=== PATIENT | male | born 1945 | race Caucasian/White ===

== ENCOUNTER 2022-05-18 17:34 | Observation (INO) | payer MEDICARE, OTHER, SELFPAY ==
[2022-05-18] VITALS (11 sets, daily range): BP systolic 135–158; BP diastolic 49–97; PULSE 64–80; RESP 15–20; TEMP 36.4–36.7; O2SAT 97–100; BMI 26.2
--- NOTE | ~2022-05-18 | CT_ITS ---
EXAMINATION: CTA chest PE protocol DATE: 05/19/2022 14:10 INDICATION: Recurrent atypical chest pain. TECHNIQUE: Computed tomography (CT) pulmonary angiogram of the chest was performed with 100 mL Omnipa que-350 intravenous contrast. Additional 3D reconstructions utilizing coronal maximum intensity proje ction (MIP) were performed. Automated exposure control and iterative reconstruction technique were em ployed. The dose-length product was 362.01 mGy-cm. COMPARISON: The abdomen and pelvis dated 03/28/2013 and 03/26/2013 FINDINGS: Excellent contrast opacification of the pulmonary arteries. There is mild streak artifact from dense contrast in the superior vena cava and right atrium. Mild scattered respiratory motion artifact which does not significantly limit evaluation. No pulmonary embolism. Chronic mild elevation the right hem idiaphragm with atelectasis along the basilar right middle and lower lobes. There is additional mild dependent atelectasis in the bilateral lower lobes. No pneumonia, pulmonary edema, pleural effusion o r pneumothorax. Heart size is normal. No pericardial effusion. Thoracic aorta is normal in caliber wi th no dissection. No significant change in several prominent but still normal-sized right hilar and m ediastinal lymph nodes which are likely reactive and unchanged since 03/26/2013. Small sliding-type hia connor hernia. There are bridging osteophytes at multiple levels in the spine, consistent with diffuse i diopathic skeletal hyperostosis (DISH). IMPRESSION: 1. No pulmonary embolism or other acute cardiopulmonary disease. 2. Chronic mild elevation right hemidiaphragm with stable appearance of associated right basilar atel ectasis/scarring. 3. Small sliding-type hiatal hernia. Reviewed, dictated and finalized at location A. IMPRESSION: 1. No pulmonary embolism or other acute cardiopulmonary disease. 2. Chronic mild elevation right hemidiaphragm with stable appearance of associa jeni right basilar atelectasis/scarring. 3. Small sliding-type hiatal hernia.
--- NOTE | ~2022-05-18 | XR_ITS ---
EXAMINATION: XR chest 2V Exam Date/Time: 05/18/2022 17:56 CDT HISTORY: L.SIDE CP, DIZZINESS, SOB SINCE THURSDAY. Comparison: None available. RESULT: Lines, tubes, and devices: None. Lungs and pleura: Streaky bibasilar opacities likely representing scar/atelectasis. Cardiomediastinal silhouette: Arch calcification. Other: No acute osseous or upper abdominal finding. IMPRESSION: No acute cardiopulmonary process. Reviewed, dictated and finalized at location K.
--- NOTE | ~2022-05-18 | NM_ITS ---
EXAMINATION: NM moses stress w perfusion DATE: 05/19/2022 14:14 INDICATION: Chest pain. TECHNIQUE: Rest images were obtained following intravenous administration of 9.7 mCi Tc99m tetrofosmi n (Myoview). The patient was infused intravenously with Lexiscan (regadenoson). Then, 30.5 mCi Tc99m tetrofosmin (Myoview) was administered intravenously, and stress images were obtained. Data was recon structed into short axis and horizontal and vertical long axis SPECT images. Gated SPECT images were also obtained. COMPARISON: Chest CT 05/19/2022 FINDINGS: There is no definite reversible or fixed perfusion abnormality to suggest ischemia or infar ction. There is no segmental wall motion abnormality. Left ventricular ejection fraction measures 6 9%. IMPRESSION: 1. No definite ischemia or infarct. 2. Normal left ventricular ejection fraction measuring 69%. Reviewed, dictated and finalized at location A.
--- NOTE | 2022-05-18 17:34 | ECG_ITS ---
Measurements Intervals [place] Rate: 86 P: 47 NC: 188 QRS: 58 QRSD: 80 T: 28 QT: 335 QTc: 402 Interpretive Statements SINUS RHYTHM WITH FREQUENT VENTRICULAR PREMATURE COMPLEXES NONSPECIFIC T-WAVE ABNORMALITY ABNORMAL RHYTHM ECG NO PREVIOUS ECG AVAILABLE FOR COMPARISON Electronically Signed On 05-19-2022 12:17:27 CDT by Bill Reid M.D.
[2022-05-18 18:01] LABS: Basophils Absolute Auto 0.1 K/mm3 (0.0-0.1); Eosinophils Absolute Auto 1.2 K/mm3 (0-0.3); Eosinophils Percent Auto 12.5 % (0-4.4); Hematocrit 42.9 % (42.0-52.0); Hemoglobin 14.1 g/dL (14.0-18.0); Immature Granulocyte Absolute 0.02 K/mm3 (0.00-0.031); Immature Granulocyte Percent A 0.2 % (0-0.5); Lymphocytes Absolute Auto 2.04 K/mm3 (0.9-3.2); Lymphocytes Percent Auto 21.7 % (18.3-44.2); Mean Corpuscular HGB Conc 32.9 g/dl (32-36); Mean Corpuscular Hemoglobin 31.1 pg (26-34); Mean Corpuscular Volume 94.7 fl (80-100); Mean Platelet Volume 9.3 fl (7.4-10.4); Monocytes Absolute Auto 0.6 K/mm3 (0.1-0.6); Monocytes Percent Auto 5.9 % (2.6-8.5); Neutrophils Absolute Auto 5.5 K/mm3 (1.3-6.7); Neutrophils Percent Auto 58.7 % (45.5-73.1); Platelet Count Result 333 k/mm3 (150-375); Red Blood Count 4.53 M/mm3 (4.6-6.20); Red Cell Distribution Width 13.2 % (11.5-14.5); White Blood Count 9.4 K/mm3 (4.5-10.0)
[2022-05-18 18:13] LABS: Prothrombin Time 12.5 Seconds (11.1-14.7)
[2022-05-18 18:14] LABS: Alanine Aminotransferase 17 U/L (6-50); Albumin Level 4.7 g/dL (3.5-5.1); Alkaline Phosphatase 47 U/L (38-126); Anion Gap 13 mmol/L (8-16); Aspartate Amino Transferase 24 U/L (17-59); Bilirubin,Total 0.6 mg/dL (0.2-1.3); Blood Urea Nitrogen 27 mg/dL (9-20); Calcium 8.7 mg/dL (8.4-10.2); Carbon Dioxide 21 mmol/L (22-30); Chloride 107 mmol/L (98-107); Estimated CRCL calculation 42 ml/min; Estimated Glomerular Filt Rate 54; Glucose 104 mg/dL (65-110); Lipase 127 U/L (23-300); Partial Thromboplastin Time 37.3 SECONDS (22.3-36.8); Potassium 3.6 mmol/L (3.4-5.0); Sodium 141 mmol/L (137-145)
[2022-05-18 18:27] LABS: Troponin I < 0.012 ng/mL (0.000-0.034)
[2022-05-18] MEDS: ASPIRIN 81 MG CHEWABLE TABLET 324 MG PO (20:41)
--- NOTE | 2022-05-18 20:56 | ED.CHESTPAIN ---
HPI - Chest Pain General Chief Complaint: Chest Pain Stated Complaint: CP Time Seen by Provider: 05/18/22 20:19 Source: patient and family Mode of arrival: ambulatory Limitations: no limitations History of Present Illness HPI narrative: 76-year-old with a history of hypertension, hypercholesterolemia here with a left-sided chest pain since this afternoon. Patient states that she went out for walks and after reaching back started having pain in his left side. He denies any shortness of breath. No history of fever or chills or cough. No previous history of CAD. MD complaint: chest pain Onset (ago): hour(s) (5) Timing of current episode: constant Onset: during rest Pain location: left chest Pain radiation: none Severity: moderate Quality: tightness and aching Relieving factors: nothing Exacerbating factors: nothing Treatment prior to arrival: none Risk Factors Coronary artery disease risk factors: hyperlipidemia and hypertension Related Data Allergies Allergy/AdvReac Type Severity Reaction Status Date / Time No Known Drug Allergies Allergy Verified 03/28/13 16:44 Review of Systems Review of Systems: All systems reviewed & are unremarkable except as noted in HPI and below Constitutional: Constitutional: Reports no additional constitutional complaints Eyes: Eyes: Reports no additional eye complaints ENT: Reports system reviewed and no additional complaints, except as documented Cardiovascular: Cardiovascular: Reports as per HPI Respiratory: Respiratory: Reports no additional respiratory complaints Gastrointestinal: Gastrointestinal: Reports no additional gastrointestinal complaints Musculoskeletal: Musculoskeletal: Reports no additional musculoskeletal complaints Exam Narrative: GENERAL: Well-appearing, well-nourished, and in no acute distress. HEAD: Normocephalic, atraumatic. EYES: PERRLA and EOMI.. NECK: Supple. CHEST: Clear to auscultation. No respiratory distress. HEART: Regular rate and rhythm. No murmur heard. Normal peripheral pulses. ABDOMEN: Soft, nontender, nondistended, normal active bowel sounds. EXTREMITIES: Normal range of motion. No edema. SKIN: Warm, dry, no rash. NEURO: No focal deficits. Alert and oriented x3. PSYCH: Normal mood and affect. Course Course Emergency Course: Patient upon arrival to the ER states his pain is very minimal. He wants to know what could be the cause of pain. Explains about his EKG and cardiac enzymes he wants to be admitted to be checked out. Vital Signs Vital signs: Vital Signs Temperature 36.7 C 05/18/22 17:47 Pulse Rate 80 05/18/22 17:47 Respiratory Rate 20 05/18/22 17:47 Blood Pressure 151/69 H 05/18/22 17:47 Pulse Oximetry 99 05/18/22 17:47 Oxygen Delivery Room Air 05/18/22 17:47 Temperature 36.7 C 05/18/22 17:47 Pulse Rate 64 05/18/22 21:14 Respiratory Rate 20 05/18/22 21:14 Blood Pressure 140/49 L 05/18/22 21:14 Pulse Oximetry 100 05/18/22 21:14 Oxygen Delivery Room Air 05/18/22 20:43 MDM - Chest Pain MDM Narrative Medical decision making narrative: 76-year-old with a history of hypertension, hyperlipidemia now having left-sided chest pain nonreproducible EKG did not show any evidence of acute ST-T changes. Differential Diagnosis Differential diagnosis: Likely pneumothorax, unstable angina pectoris and atypical chest pain Medical Records Data Attestation: I reviewed the patient's medical records. Lab Data Attestation: I reviewed the patient's lab results. 05/18/22 17:52 05/18/22 17:52 Labs: Lab Results 05/18/22 05/18/22 05/18/22 Range/Units 17:52 17:52 17:52 WBC 9.4 (4.5-10.0) K/mm3 RBC 4.53 L (4.6-6.20) M/mm3 Hgb 14.1 (14.0-18.0) g/dL Hct 42.9 (42.0-52.0) % MCV 94.7 (80-100) fl MCH 31.1 (26-34) pg MCHC 32.9 (32-36) g/dl RDW 13.2 (11.5-14.5) % Plt Count 333 (150-375) k/mm3 MPV 9.3 (7.4-10.4) fl Immature Gran
[2022-05-18 21:15] LABS: Troponin I < 0.012 ng/mL (0.000-0.034)
--- NOTE | 2022-05-18 22:28 | ADMGEN ---
This patient, Yusuf Toth, was admitted to IMU Room 201-01. Patient/family oriented to hospital policies and general routines including ID bracelet, bed and alarms, visiting hours, pain management, procedures, bathroom and other care routines, personal items, smoking policy, room service/diet, and visiting hours. Information on how to activate the Rapid Response Team has been discussed. Patient/Family are encouraged to report perceived risks to care and to ask questions if they do not understand what they are told or what they should do.
[2022-05-18] MEDS: ACETAMINOPHEN 325 MG TABLET 650 MG PO (23:01)
--- NOTE | 2022-05-18 23:57 | PM.IMHP ---
H&P: HPI History of Present Illness Date/Time: 05/18/22 23:57 Chief Complaint: Chest pain Narrative: 76-year-old male with a past medical history of essential hypertension and hyperlipidemia who presented to the ER from home a with 3 days of intermittent chest pain. The patient reports that he is usually able to walk a couple of miles a day without symptoms. However the last 3 days he has been having some substernal/left-sided chest pain that feels like a toothache and is 5/10 intensity. The pain occurs with activity but seems to persist after rest. Sometimes the pain last anywhere between 10 minutes to 2 hours. He reports that he notices the pain more when he is sitting still. It is associated with some generalized feeling of nausea but no vomiting. He denies any diaphoresis. He has also noticed feeling a little bit short of breath with activity which is unusual for him. Since the chest pain has started occurring he notes that if he is actively having the chest pain and tries to stand up he will get a little bit lightheaded. However the symptoms of lightheadedness were not occurring prior to his episodes of chest pain. He denies any orthopnea, paroxysmal nocturnal dyspnea, palpitations or tachycardia. He has had several stress tests in the past but it is been several years since his last stress test. He he had an echocardiogram due to a heart murmur nose but primary care physician in January. He states he was performed at [facility] and he never heard the results of the echo. He denies any relieving factors for the chest pain. He reports that he was taking a baby aspirin daily for years but was told to stop the baby aspirin after he had an EGD several years ago. He had the EGD due to frequent nausea and vomiting at that time. He has not had those symptoms in quite some time. He denies any known history of GERD or ulcers. He reports that the symptoms have occurred more frequently today. And now the patient's symptoms are occurring at rest and not just with activity. He has not had any chest pain since he arrived to the hospital. Review of Systems Review of Systems: 12 systems were reviewed with pertinent positives and negatives per HPI. Except as documented in the HPI, all other systems were reviewed and are negative. [facility] Past Medical History Medical History (Updated 05/19/22 @ 02:06 by Yani Vinson DO) Allergic rhinitis Essential hypertension Hyperlipidemia Surgical History Surgical History (Updated 05/19/22 @ 02:06 by Yani Vinson DO) History of left knee replacement (~2018) Family History Family History Father Coronary artery disease Myocardial infarction Sibling Coronary artery disease Mother COPD (chronic obstructive pulmonary disease) Social History Social History (Updated 05/19/22 @ 02:09 by Yani Vinson DO) Social History: He lives in [place] with his of 25 years. He does not have any biological children but has 1 stepdaughter. He is a lifelong nonsmoker and does not have any history of significant alcohol use. 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 He then worked further people for several more years until he retired at age 75. Code status: Full code Surrogate decision maker: Smoking status: Never smoker Alcohol intake: never Substance use: never Lack of Transportation: No Lack of Food: Never True Current Housing: I Have Housing Concerned About Future Housing: No Difficulty Paying Gas/Electric Bills: No Difficulty Paying for Meds: No Currently Unemployed: No Education: High School Diploma/GED Difficulty w/ Childcare or Family Care: No Spiritual care concerns: No Meds Home Medications and Allergies Home Medications Medication Instructions Recorded Confirmed Type cetirizine 10
[2022-05-19] VITALS (11 sets, daily range): BP systolic 123–147; BP diastolic 59–63; PULSE 55–90; RESP 18–20; TEMP 36.3–36.6; O2SAT 97–99
--- NOTE | 2022-05-19 | ECHO_ITS ---
Patient Info Name: Yusuf Toth Age: 76 years : 1945 Gender: Male Ht: 67 in Wt: 167 lbs BSA: 1.91 m2 HR: 58 bpm BP: 128 / 62 mmHg Heart Rhythm: Sinus Rhythm Technical Quality: Fair Exam Date: 05/19/2022 9:44 AM Exam Location: [facility] Patient Status: Inpatient Admit Date: 05/18/2022 Staff Ordering Physician: Marcelo Higginbotham MD [employer] Worker: Adriana Hugo RDCS Attending Provider: Yani Vinson DO Referring Physician: Neftaly KASPER; Exam Type: CA echo doppler color flow Study Info Indications - systolic ejection murmur Complete two-dimensional, color flow and Doppler transthoracic echocardiogram is performed with contrast to opacify the left ventricle and to improve the deliniation of the left ventricle endocardial borders. Contrast/Agitated Saline Contrast/Ag. Saline: Definity Amount: 3.00 ml Administered By: Adriana Hugo RDCS Existing IV Access: Yes IV Access Condition: patent with no signs of infiltration Summary 1. Left ventricular chamber dimension is normal. 2. Left ventricular systolic function is normal, estimated at 65-70%. 3. There is mildly increased left ventricular wall thickness. 4. The left ventricular diastolic function is grade I diastolic dysfunction. 5. Left atrial chamber dimension is mildly enlarged. 6. There is moderate aortic valve stenosis with a peak velocity of 233 cm/s, mean gradient of 11 mmHg, and aortic valve area of 1.2 cm2. 7. There is mild aortic valve regurgitation. 8. There is mild tricuspid valve regurgitation. Left Ventricle Left ventricular chamber dimension is normal. Left ventricular systolic function is normal, estimated at 65-70%. There is mildly increased left ventricular wall thickness. The left ventricular diastolic function is grade I diastolic dysfunction. Right Ventricle Right ventricular chamber dimension is normal. Right ventricular systolic function is normal. Left Atria Left atrial chamber dimension is mildly enlarged. Right Atria Right atrial chamber dimension is normal. Atrial Septum Intact interatrial septum visualized by color flow imaging. Aortic Valve The aortic valve is trileaflet. There is moderate aortic valve stenosis with a peak velocity of 233 cm/s, mean gradient of 11 mmHg, and aortic valve area of 1.2 cm2. There is mild aortic valve regurgitation. Pulmonic Valve The pulmonic valve is normal. There is no pulmonic valve stenosis. There is trace pulmonic regurgitation. Mitral Valve The mitral valve has normal leaflets. There is no mitral valve stenosis. There is trace mitral valve regurgitation. Tricuspid Valve The tricuspid valve leaflets are normal. There is no significant tricuspid valve stenosis. There is mild tricuspid valve regurgitation. No pulmonary hypertension, estimated pulmonary arterial systolic pressure is 27 mmHg. Pericardium/Pleural The pericardium appears normal. There is no pericardial effusion. Aorta The prox ascending aorta size is normal. Left Ventricular Outflow Tract Name Value Normal LVOT 2D LVOT Diameter 2.0 cm LVOT Doppler
[2022-05-19 00:10] LABS: Troponin I < 0.012 ng/mL (0.000-0.034)
[2022-05-19 05:26] LABS: Troponin I < 0.012 ng/mL (0.000-0.034)
--- NOTE | 2022-05-19 06:00 | ECG_ITS ---
Measurements Intervals [place] Rate: 59 P: 31 SD: 195 QRS: 37 QRSD: 82 T: 16 QT: 419 QTc: 416 Interpretive Statements SINUS BRADYCARDIA OTHERWISE NORMAL EKG COMPARED TO ECG 05/18/2022 17:39:50 SINUS BRADYCARDIA NOW PRESENT Electronically Signed On 05-19-2022 12:29:06 CDT by Marcelo Higginbotham M.D.
[2022-05-19] MEDS: LOSARTAN POTASSIUM 50 MG TABLET PO (08:47)
[2022-05-19] MEDS: ASPIRIN 81 MG ENTERIC TABLET PO (08:49)
--- NOTE | 2022-05-19 09:16 | PM.CNCAR ---
Assessment and Plan Assessment and plan (1) Essential hypertension: Code(s): I10 - Essential (primary) hypertension Status: Acute Assessment and Plan: Above goal. Continue hydrochlorothiazide and losartan. Will add some low-dose metoprolol 12.5 mg p.o. b.i.d. and up titrate as need be. This will also help treat his PVCs. (2) Hyperlipidemia: Code(s): E78.5 - Hyperlipidemia, unspecified Status: Acute Assessment and Plan: Continue simvastatin (3) Atypical chest pain: Code(s): R07.89 - Other chest pain Status: Acute Assessment and Plan: He does not describe unstable angina. He has resting pain is reproducible by pushing on his chest. Highly unlikely to be cardiac in etiology. Will proceed in order a Lexiscan myocardial perfusion study for reassurance purposes as well as for further evaluation his chest pain and given his numerous risk factors. (4) Dizziness: Code(s): R42 - Dizziness and giddiness Status: Acute Assessment and Plan: Will check orthostatic blood pressure. Stay hydrated. Continue on telemetry for now (5) Family history of coronary artery disease: Code(s): Z82.49 - Family history of ischemic heart disease and other diseases of the circulatory system Status: Acute (6) Systolic ejection murmur: Code(s): R01.1 - Cardiac murmur, unspecified Status: Acute Assessment and Plan: Probably mild aortic stenosis. Will check a 2D echocardiogram Doppler. History of Present Illness History of Present Illness Consult date/time: 05/19/22 09:16 Requesting physician: Yani Vinson, Consult reason: chest pain Reason For Visit: unstable angina Narrative: Date of service 05/19/2022 Reason consultation: Chest pain Requesting provider: Dr. Vinson History: Patient is 76-year-old male has had several stress tests in the past reportedly. He states he was having the stress test at the insistence of his primary care doctor throughout the years but has never really had any chest pain. Regardless he does have a murmur and a history of hypertension hyperlipidemia. Came to the hospital because of some chest pain. His chest pain is generally occurring while at rest. He has no exertional symptoms and has no symptoms with walking or exercising and he states he can split wood and not having any issues at all. Over the past 3 days however he describes finger point left-sided chest pain without radiation to his arm back neck jaw no associated with other symptoms. He does have some dizziness upon standing. His symptoms occur at rest and will last for up to 30 minutes at a time. He has had 4 or 5 episodes over the past several days. He denies any syncope, paroxysmal nocturnal dyspnea, orthopnea, edema, palpitations. He does get a little short of breath at times but this is not particularly new or different a does have the dizziness upon standing which I previously mentioned. Review of Systems Review of Systems: All systems reviewed & are unremarkable except as noted in HPI and below Constitutional: Constitutional: Denies chills Eyes: Eyes: Denies blurry vision ENT: Reports Normal hearing present Cardiovascular: Cardiovascular: Reports chest pain Respiratory: Respiratory: Denies chest congestion Gastrointestinal: Gastrointestinal: Denies abdominal pain Genitourinary: Genitourinary: Denies hematuria Musculoskeletal: Musculoskeletal: Denies back pain Integumentary/Breasts: Skin/Breast: Denies breast pain Neurologic: Denies Abnormal speech present Psychiatric: Psychiatric: Denies confusion Endocrine: Endocrine: Denies excessive sweating Hematologic/Lymphatic: Hematologic/Lymphatic: Denies easy bleeding Allergic/Immunologic: Allergic/Immunologic: Denies GI upset with certain foods PMFSH Past Medical History Medical History Allergic rhinitis [facility]
--- NOTE | 2022-05-19 09:23 | EST_ITS ---
Patient Info Name: Yusuf Toth Age: 76 years : 1945 Gender: Male Ht: 67 in Wt: 167 lbs BSA: 1.91 m2 HR: 64 bpm BP: 101 / 52 mmHg Heart Rhythm: Sinus Rhythm Exam Date: 05/19/2022 1:10 PM Exam Location: [facility] Stress Patient Status: Inpatient Admit Date: 05/18/2022 Staff Ordering Physician: Marcelo Higginbotham MD Attending Provider: Yani Vinson DO Exercise Technologist: Josephine Rice CT Nurse: JEAN-PIERRE ALLEN Exam Type: CA stress moses w NM Study Info Indications R07.9 - Chest pain, unspecified A regadenoson stress test was performed. Summary 1. No abnormal ST/T wave changes diagnostic of ischemia with Lexiscan. 2. Please correlate with nuclear medicine images, reported separately. Protocol: Lexiscan Stress ECG Details Stage: REST Duration (min): 0 min : 55 sec HR (bpm): 66 SBP (mmHg): 136 DBP (mmHg): 66 Stage: REST Duration (min): 8 min : 41 sec HR (bpm): 64 SBP (mmHg): 136 DBP (mmHg): 66 Stage: STAGE 1 Duration (min): 0 min : 59 sec HR (bpm): 88 SBP (mmHg): 145 DBP (mmHg): 68 Stage: RECOVERY Duration (min): 1 min : 0 sec HR (bpm): 89 SBP (mmHg): 145 DBP (mmHg): 68 Stage: RECOVERY Duration (min): 2 min : 0 sec HR (bpm): 90 SBP (mmHg): 145 DBP (mmHg): 68 Stage: RECOVERY Duration (min): 3 min : 0 sec HR (bpm): 85 SBP (mmHg): 147 DBP (mmHg): 61 Stage: RECOVERY Duration (min): 3 min : 12 sec HR (bpm): 82 SBP (mmHg): 147 DBP (mmHg): 61 Rest HR: 64 bpm Peak HR: 90 bpm Rest Sys BP: 136 mmHg Peak Sys BP: 147 mmHg Max Pred HR: 144 bpm % Max Pred HR: 63 % Target HR: 122 bpm Max RPP: 13,230 bpm*mmHg Total Time: 1 min : 0 sec Rest Tse BP: 66 mmHg Peak Tse BP: 61 mmHg Total Dose: 0.4 mg Resting ECG Sinus rhythm. Stress ECG Sinus rhythm. No abnormal ST/T wave changes diagnostic of ischemia with Lexiscan. Report Signatures
[2022-05-19] MEDS: PERFLUTREN LIPID MICROSPHERES 1.5 ML VIAL DILUTED TO 10 ML TOTAL VOLUME IV PUSH (10:29)
--- NOTE | 2022-05-19 10:29 | IVDEFINITY ---
Prior to administration of IV Definity the patient was educated on the risks and benefits of the imaging enhancing agent including potential adverse side effects. The patient verbalized understanding. Allergies were verified. No exclusion criteria were identified and at least one of the following inclusion criteria were met: 1) physician request, 2) patient technically difficult to image (per the [place] [employer] guidelines of two or more segments not discernable within the apical view), or 3) questionable left ventricular function. ?
--- NOTE | 2022-05-19 12:10 | PC.NURSE ---
Pt to nuclear medicine for Lexiscan stress test via wheelchair.
--- NOTE | 2022-05-19 14:11 | PC.NURSE ---
Pt returned from nuclear medicine via wheelchair with no issues noted
--- NOTE | 2022-05-19 14:39 | PM.DS ---
DS: Admitting Diagnosis Discharge Date 05/19/2022 Admitting Diagnosis Chest pain DS: Discharge Diagnosis Discharge Diagnosis (1) Unstable angina pectoris: Code(s): I20.0 - Unstable angina Status: Acute Assessment and Plan: As per cardiology note -pt does not describe unstable angina.? He has resting pain is reproducible by pushing on his chest.? Highly unlikely to be cardiac in etiology.? Lexiscan was negative. Pt had CT PE which was negative Small sliding-type hiatal hernia was found on CT. PPI is advised GERD OR MS are possible cause of Chest pain (2) Essential hypertension: Code(s): I10 - Essential (primary) hypertension Status: Acute Assessment and Plan: Medications are optimized prior to DC (3) Hyperlipidemia: Code(s): E78.5 - Hyperlipidemia, unspecified Status: Acute Assessment and Plan: Cont statin on DC Plan Patient has been admitted as observation status. DS: Summary Hospital Course Hospital Course: 76-year-old male with a past medical history of essential hypertension and hyperlipidemia who presented to the ER from home a with 3 days of intermittent chest pain.? The patient reports that he is usually able to walk a couple of miles a day without symptoms.? However the last 3 days he has been having some substernal/left-sided chest pain that feels like a toothache and is 5/10 intensity.? The pain occurs with activity but seems to persist after rest.? Sometimes the pain last anywhere between 10 minutes to 2 hours.? He reports that he notices the pain more when he is sitting still.? It is associated with some generalized feeling of nausea but no vomiting.? He denies any diaphoresis.? He has also noticed feeling a little bit short of breath with activity which is unusual for him.? Since the chest pain has started occurring he notes that if he is actively having the chest pain and tries to stand up he will get a little bit lightheaded.? However the symptoms of lightheadedness were not occurring prior to his episodes of chest pain.? He denies any orthopnea, paroxysmal nocturnal dyspnea, palpitations or tachycardia.? He has had several stress tests in the past but it is been several years since his last stress test.? He he had an echocardiogram due to a heart murmur nose but primary care physician in January.? He states he was performed at [facility] and he never heard the results of the echo.? He denies any relieving factors for the chest pain.? He reports that he was taking a baby aspirin daily for years but was told to stop the baby aspirin after he had an EGD several years ago.? He had the EGD due to frequent nausea and vomiting at that time. Time Spent with Patient Time attestation: Total time spent providing and/or coordinating discharge services:40 minutes on day of DC Exam Narrative: Weight 76 kg BMI 26.2 Const: Other: No acute distress, well-developed well-nourished, appears younger than stated age HENMT: Other: Mucous membranes are tacky, no oral pharyngeal erythema irregular teeth with a few missing teeth but the remainder of dentition is in fair condition Eyes: Other: Pupils are equal and reactive, no scleral icterus, no conjunctival pallor, cataracts noted bilaterally Neck: Other: No JVD, no lymphadenopathy, no thyromegaly Chest: Other: Nontender to palpation Resp: Other: Clear to auscultation bilaterally, no increased work of breathing Cardio: Other: Clear to auscultation bilaterally, no increased work of breathing GI: Other: Soft, nontender, nondistended, positive bowel sounds Skin: Other: No pallor, non jaundice Neuro: Other: Alert oriented, speech is clear, no facial asymmetry, no localizing neurologic deficits noted on limited exam Extrem: Other: No clubbing, cyanosis or edema Psych: Other: Appropriate mood and affect, pleasant and cooperative, judgment and insight intact DS: Data Data Completed and [place]
== END 2022-05-19 15:17 | disposition home or self-care (01) ==
LOC: ANHED 21:44 → ANHIMU 22:18
PROVIDERS: Emergency Medicine; Admitting Provider Internal Medicine; Emergency Provider Family Medicine; PCP Internal Medicine; Visit Provider Family Medicine
DX: I20.0 Unstable angina (principal); I11.9 Hypertensive heart disease without heart failure; E78.5 Hyperlipidemia, unspecified; R94.31 Abnormal electrocardiogram [ECG] [EKG]; R42 Dizziness and giddiness; Z20.822 Contact with and (suspected) exposure to COVID-19; R91.8 Other nonspecific abnormal finding of lung field; I08.1 Rheumatic disorders of both mitral and tricuspid valves; R00.1 Bradycardia, unspecified; K44.9 Diaphragmatic hernia without obstruction or gangrene; Z82.49 Family history of ischemic heart disease and other diseases of the circulatory system; Z79.899 Other long term (current) drug therapy
CPT/HCPCS: 36415; 71046; 71275; 78452; 80053; 83690; 84484; 85025; 85610; 85730; 93005; 93017; 93306; 96374; 99285; A9270; A9502; C8929; G0378; J2785; Q9957; Q9967

== ENCOUNTER → 2023-06-09 10:36 | Outpatient (REF) | payer MEDICARE, OTHER, SELFPAY | LOC: ANHLAB 10:36 | PROVIDERS: PCP Internal Medicine; Visit Provider Plastic Surgery | DX: L57.8 Other skin changes due to chronic exposure to nonionizing radiation (principal) | CPT/HCPCS: 88305 ==

== ENCOUNTER 2023-10-25 09:01 | Observation (INO) | payer MEDICARE, OTHER, SELFPAY ==
--- NOTE | ~2023-10-25 | CT_ITS ---
Non-contrast CT scan of the Abdomen and Pelvis Clinical indication: Left flank pain Technique: 2.5 mm axial scans were obtained through the abdomen and pelvis without intravenous or or al contrast. Dose reduction technique was used on this scan by utilizing automated exposure control a nd iterative reconstruction technique. The dose-length product (DLP) was 441.54 mGy-cm. Findings: Images through the lung bases reveal no abnormalities. There is a 3-4 mm stone at the proximal left ureter (axial image 100), with mild left hydroureteronep hrosis to this level. There are additional punctate nonobstructing renal stones bilaterally. No right ureteral stone or right hydronephrosis. The liver, spleen, pancreas, gallbladder, and adrenals appear normal. There is no aortic aneurysm. There is no evidence of bowel obstruction. Images through the pelvis were performed. There is no evidence of ascites or lymphadenopathy. Urinary bladder unremarkable. Prostate gland mildly enlarged. Impression: 3-4 mm proximal left ureteral stone, with mild left hydroureteronephrosis. Additional tiny punctate nonobstructing renal stones. Reviewed, dictated and finalized at [facility]. Impression: 3-4 mm proximal left ureteral stone, with mild left hydroureteronephrosis. Additional tiny punctate nonobstructing renal stones.
--- NOTE | ~2023-10-25 | XR_ITS ---
EXAMINATION: XR retrograde pyelo w/stent LT DATE: 10/26/2023 11:56 INDICATION: Left ureteral stone. TECHNIQUE: 41 intraoperative fluoroscopic views of the abdomen and pelvis were obtained. I was not pr esent. Fluoroscopy exposure time was 47 seconds. COMPARISON: CT abdomen and pelvis 10/25/2023 FINDINGS: The left-sided retropyelogram demonstrates mild hydronephrosis. There is a mobile filling d efect in the distal left ureter. The final images demonstrate a left internal ureteral stent in expec jeni position. IMPRESSION: 1. Mild left hydronephrosis. 2. Mobile filling defect in the distal left ureter, which may be a gas bubble or the ureteral stone. 3. Left internal ureteral stent in expected position. Reviewed, dictated and finalized at location A. IMPRESSION: 1. Mild left hydronephrosis. 2. Mobile filling defect in the distal left ureter, which may be a gas bubble o r the ureteral stone. 3. Left internal ureteral stent in expected position.
[2023-10-25 09:13] VITALS: BP 150/75; PULSE 90; RESP 18; TEMP 36.4; O2SAT 100
[2023-10-25 09:28] LABS: Basophils Absolute Auto 0.1 K/mm3 (0.0-0.1); Basophils Percent Auto 0.5 % (0.2-1.2); Eosinophils Absolute Auto 0.5 K/mm3 (0-0.3); Eosinophils Percent Auto 3.4 % (0-4.4); Hematocrit 45.5 % (42.0-52.0); Hemoglobin 14.9 g/dL (14.0-18.0); Immature Granulocyte Absolute 0.05 K/mm3 (0.00-0.031); Immature Granulocyte Percent A 0.4 % (0-0.5); Lymphocytes Absolute Auto 1.91 K/mm3 (0.9-3.2); Lymphocytes Percent Auto 14.2 % (18.3-44.2); Mean Corpuscular HGB Conc 32.7 g/dl (32-36); Mean Corpuscular Hemoglobin 30.7 pg (26-34); Mean Corpuscular Volume 93.8 fl (80-100); Mean Platelet Volume 9.7 fl (7.4-10.4); Monocytes Percent Auto 7.3 % (2.6-8.5); Neutrophils Percent Auto 74.2 % (45.5-73.1); Platelet Count Result 315 k/mm3 (150-375); Red Blood Count 4.85 M/mm3 (4.6-6.20); Red Cell Distribution Width 12.7 % (11.5-14.5); White Blood Count 13.5 K/mm3 (4.5-10.0)
[2023-10-25 09:41] LABS: Alanine Aminotransferase 14 U/L (6-50); Albumin Level 4.7 g/dL (3.5-5.1); Alkaline Phosphatase 39 U/L (38-126); Anion Gap 13 mmol/L (4-12); Aspartate Amino Transferase 24 U/L (17-59); Bilirubin,Total 1.1 mg/dL (0.2-1.3); Blood Urea Nitrogen 25 mg/dL (9-20); Calcium 9.6 mg/dL (8.4-10.2); Carbon Dioxide 24 mmol/L (22-30); Chloride 103 mmol/L (98-107); Estimated CRCL calculation 30 ml/min; Estimated Glomerular Filt Rate 39; Glucose 109 mg/dL (65-110); Potassium 4.4 mmol/L (3.4-5.0); Sodium 140 mmol/L (137-145)
[2023-10-25 10:01] LABS: Add Urine Microscopic? YES; Appearance Urine Clear (Clear); Bacteria Urine None Seen /hpf; Bilirubin Urine Negative (Negative); Blood Urine 3+ (Negative); Color Urine Yellow (Yellow); Glucose Urine UA Negative (Negative); Ketones Urine Trace mg/dL (Negative); Leukocyte Esterase Ur Negative LEU/UL (Negative); Nitrate Urine Negative (Negative); Protein Urine 1+ mg/dL (Negative); Squamous Epithelial Cell Urine None Seen /hpf (Few); Urobilinogen Urine 0.2 mg/dL (<2.0); WBC Urine 0-5 /hpf (0-3); pH Urine 5.5 (5.0-9.0)
--- NOTE | 2023-10-25 10:28 | ED.BACK ---
HPI - Back Pain/Injury General Chief Complaint: Back Pain/Injury Stated Complaint: left flank pain x 3 days Time Seen by Provider: 10/25/23 10:21 Source: patient Mode of arrival: ambulatory Limitations: no limitations History of Present Illness HPI Narrative: Patient presents with complaint of left flank and left-sided abdominal pain of 3 days duration. It is 8/10 severity. He denies any associated nausea or vomiting. He has a previous history of kidney stones for which he saw a urologist at [facility] but cannot recall their name does not follow regularly with them. He denies any urinary urgency, frequency, hematuria, or dysuria. He does note that he previously required a surgical intervention with urology in which they went through his urethra. He denies any korin fever although he has been having hot flashes. Related Data Home Medications Medication Instructions Recorded Confirmed cetirizine 10 mg chewable tablet 10 mg PO DAILY 05/18/22 05/18/22 hydrochlorothiazide 12.5 mg capsule 12.5 mg PO DAILY 05/18/22 05/18/22 losartan 50 mg tablet 50 mg PO DAILY 05/18/22 06/09/23 simvastatin 40 mg tablet 40 mg PO EVERY OTHER DAY 05/18/22 06/09/23 Allergies Allergy/AdvReac Type Severity Reaction Status Date / Time No Known Drug Allergies Allergy Unknown Verified 10/25/23 09:15 [facility] Past Medical History Medical History Allergic rhinitis Essential hypertension History of kidney stones Hyperlipidemia Surgical History Surgical History History of left knee replacement (~2018) Family History Family History Father Coronary artery disease Myocardial infarction Sibling Coronary artery disease Mother COPD (chronic obstructive pulmonary disease) Social History Social History Social History: He lives in [place] with his of 25 years. He does not have any biological children but has 1 stepdaughter. He is a lifelong nonsmoker and does not have any history of significant alcohol use. 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 He then worked [employer] for several more years until he retired at age 75. Code status: Full code Surrogate decision maker: Smoking status: Never smoker Alcohol intake: never Substance use: never Do You Feel Safe in your Home?: Yes Lack of Transportation: No Lack of Food: Never True Current Housing: I Have Housing Concerned About Future Housing: No Difficulty Paying Gas/Electric Bills: No Difficulty Paying for Meds: No Currently Unemployed: No Education: High School Diploma/GED Difficulty w/ Childcare or Family Care: No Spiritual care concerns: No Exam Narrative: GENERAL: Well-appearing, well-nourished, in moderate acute distress. Patient is standing beside the bed at the time, attempting to get comfortable HEAD: Normocephalic, atraumatic. EYES: Non injected, non icteric ENT: Nares clear, no rhinorrhea or epistaxis. NECK: Supple. CHEST: Speaking in full sentences. No respiratory distress. HEART: Regular rate and rhythm. . ABDOMEN: Soft, nondistended. No tenderness to palpation. Abdomen is without rigidity or guarding. Not peritoneal : No CVA tenderness bilaterally EXTREMITIES: Normal range of motion. No lower extremity edema. SKIN: Warm, dry, no rash. NEURO: No focal deficits. Alert and oriented x3. PSYCH: Normal mood and affect. Course Vital Signs Vital signs: Vital Signs Temperature 97.6 F 10/25/23 09:13 Pulse Rate 90 10/25/23 09:13 Respiratory Rate 18 10/25/23 09:13 Blood Pressure 150/75 H 10/25/23 09:13 Pulse Oximetry 100 10/25/23 09:13 Oxygen Delivery Room Air 10/25/23 09:13 [place]
[2023-10-25] MEDS: MORPHINE SULFATE (*CRX) 4 MG/ML INJ IV PUSH ×2 (10:35→12:16)
[2023-10-25] MEDS: SODIUM CHLORIDE 0.9% IV 1,000 ML 999 ML IV CONT ×2 (10:35→12:17)
[2023-10-25] MEDS: TAMSULOSIN HCL 0.4 MG CAPSULE PO (10:47)
[2023-10-25 11:51] LABS: Anion Gap 10 mmol/L (4-12); Blood Urea Nitrogen 24 mg/dL (9-20); Carbon Dioxide 25 mmol/L (22-30); Chloride 105 mmol/L (98-107); Estimated CRCL calculation 29 ml/min; Estimated Glomerular Filt Rate 37; Glucose 97 mg/dL (65-110); Potassium 4.4 mmol/L (3.4-5.0); Sodium 140 mmol/L (137-145)
[2023-10-25 12:04] VITALS: BP 152/80; PULSE 81; O2SAT 99
[2023-10-25] MEDS: KETOROLAC 15 MG/ML VIAL (*BKC) IV PUSH ×2 (12:41→22:25)
[2023-10-25 14:35] VITALS: BP 143/67; PULSE 83; RESP 16; TEMP 36.4; O2SAT 100
--- NOTE | 2023-10-25 14:43 | ADMGEN ---
This patient, Yusuf Toth, was admitted to [facility] Surg Room 330-02. Patient/family oriented to hospital policies and general routines including ID bracelet, bed and alarms, visiting hours, pain management, procedures, bathroom and other care routines, personal items, smoking policy, room service/diet, and visiting hours. Information on how to activate the Rapid Response Team has been discussed. Patient/Family are encouraged to report perceived risks to care and to ask questions if they do not understand what they are told or what they should do.
[2023-10-25 14:52] LABS: Influenza A QL RT-PCR Negative (Negative); Influenza B QL RT-PCR Negative (Negative); RSV RNA, RT-PCR Negative (Negative); SARS-CoV-2 RNA PCR Negative (Negative)
[2023-10-25] MEDS: LACTATED RINGERS 1,000 ML 125 ML IV CONT ×2 (15:00→23:14)
[2023-10-25 21:48] VITALS: BP 151/63; PULSE 78; RESP 18; TEMP 36.7; O2SAT 100
[2023-10-26] VITALS (11 sets, daily range): BP systolic 92–153; BP diastolic 52–83; PULSE 60–80; RESP 12–20; TEMP 36.2–36.9; O2SAT 95–100
[2023-10-26] MEDS: ONDANSETRON INJ 4 MG/2 ML VIAL IV PUSH ×2 (01:59→06:54)
[2023-10-26] MEDS: KETOROLAC 15 MG/ML VIAL (*BKC) IV PUSH (05:07)
--- NOTE | 2023-10-26 06:14 | PC.NURSE ---
10/25/23@ 0215, patient requested Lactated Ringer IV fluids to be turned off. Stated, I want to sleep tonight without it.
--- NOTE | 2023-10-26 08:13 | WPDURCON ---
Assessment and Plan Assessment and plan (1) Left flank pain: Code(s): R10.9 - Unspecified abdominal pain Status: Acute (2) Calculus of left ureter: Code(s): N20.1 - Calculus of ureter Status: Acute (3) Hydronephrosis: Code(s): N13.30 - Unspecified hydronephrosis Status: Acute Plan He would like intervention on the stone. Plan today for stone extraction. We will plan for cystoscopy with ureteroscopy and stone extraction. Possible stent. The only way I would not remove the stone is if the stone was not readily accessible on ureteroscopy. He understands risks of bleeding, infection, damage to urinary tract, inability to remove the stone. He agrees to proceed Urology Consult Note HPI Date Seen: 10/26/23 Requesting Physician: Ervin Bowden MD Primary Care Provider: Eric Earl, Consult Narrative Narrative: Yusuf Toth is a 78 year old male with history of nephrolithiasis. He has had what sounds like ureteroscopy in the past. Had acute onset left flank pain radiating to his left lower quadrant began on Thursday. It was similar to his previous stone episodes. He presented to the ER yesterday afternoon. A CT scan was done which showed a 3-4 mm proximal left ureteral stone with hydronephrosis. He denied any visible blood in the urine. He denied any vomiting. He denied any symptoms of urinary tract infection. He was admitted for further workup. Urinalysis negative for infection. He would like intervention on the stone as he has had significant pain overnight. We will plan on ureteroscopy today to try to remove his stone versus stent placement if the stone is not readily accessible Review of Systems Review of Systems: All systems reviewed & are unremarkable except as noted in HPI and below PMFSH Past Medical History Medical History Allergic rhinitis Essential hypertension History of kidney stones Hyperlipidemia Surgical History Surgical History History of left knee replacement (~2018) Family History Family History Father Coronary artery disease Myocardial infarction Sibling Coronary artery disease Mother COPD (chronic obstructive pulmonary disease) Social History Social History Social History: He lives in [place] with his of 25 years. He does not have any biological children but has 1 stepdaughter. He is a lifelong nonsmoker and does not have any history of significant alcohol use. 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 He then worked [employer] for several more years until he retired at age 75. Code status: Full code Surrogate decision maker: Smoking status: Never smoker Alcohol intake: current Drinks per week: 1 Substance use: never Substance use type: does not use Do You Feel Safe in your Home?: Yes Lack of Transportation: No Lack of Food: Never True Current Housing: I Have Housing Concerned About Future Housing: No Difficulty Paying Gas/Electric Bills: No Difficulty Paying for Meds: No Currently Unemployed: No Education: High School Diploma/GED Difficulty w/ Childcare or Family Care: No Spiritual care concerns: No Meds Home Medications and Allergies Home Medications Medication Instructions Recorded Confirmed Type cetirizine 10 mg chewable tablet 10 mg PO DAILY 05/18/22 10/25/23 History losartan 50 mg tablet 50 mg PO DAILY 05/18/22 10/25/23 History simvastatin 40 mg tablet 40 mg PO EVERY OTHER DAY 05/18/22 10/25/23 History aspirin 81 mg tablet,delayed 81 mg PO QAM #30 tabs 05/19/22 10/25/23 Rx release Allergies Allergy/AdvReac Type Severity Reaction Status Date /
[2023-10-26] MEDS: MORPHINE SULFATE (*CRX) 2 MG/ML INJ 1 MG IV PUSH (08:15)
[2023-10-26] MEDS: LACTATED RINGERS 1,000 ML 30 ML IV CONT (09:45)
--- NOTE | 2023-10-26 09:57 | WPDHPUPDATE1 ---
History and Physical Update Update Date/Time: 10/26/23 09:57 History and Physical has been reviewed, including an updated exam of the patient. There are NO changes in the patient's condition. Risks, benefits, and alternatives have been discussed and questions answered. Patient agrees to proceed with procedure.
--- NOTE | 2023-10-26 11:01 | WPDANESEPPF ---
Anes - Initial Pre Proc Eval Procedure: Operation Date: 10/26/23 16:00 Proposed Procedures p Cystoscopy, Left Ureteroscopy, Left Stone Extraction, Left Stent Placement - Enrique Woods MD Date/Time: 10/26/23 11:01 Surgeon: Ervin Bowden MD Pre Op Diagnosis: kidney stone,laurie Patient Data Age: 78 Gender: M Height: 1.7 m Weight: 73.7 kg Last Vital Signs Temp 36.7 C 10/26/23 09:55 Pulse 67 10/26/23 09:55 Resp 18 10/26/23 09:55 BP 131/52 L 10/26/23 09:55 Pulse Ox 100 10/26/23 09:55 O2 Del Method Room Air 10/26/23 09:55 FiO2 21 10/26/23 07:52 Allergies Allergy/AdvReac Type Severity Reaction Status Date / Time No Known Drug Allergies Allergy Unknown Verified 10/26/23 10:59 Home Medications Medication Instructions Recorded Confirmed Type cetirizine 10 mg chewable tablet 10 mg PO DAILY 05/18/22 10/25/23 History losartan 50 mg tablet 50 mg PO DAILY 05/18/22 10/25/23 History simvastatin 40 mg tablet 40 mg PO EVERY OTHER DAY 05/18/22 10/25/23 History aspirin 81 mg tablet,delayed 81 mg PO QAM #30 tabs 05/19/22 10/25/23 Rx release Laboratory Tests 10/25/23 10/25/23 11:31 12:11 Sodium 140 mmol/L (137-145) Potassium 4.4 mmol/L (3.4-5.0) Chloride 105 mmol/L (98-107) Carbon Dioxide 25 mmol/L (22-30) Anion Gap 10 mmol/L (4-12) BUN 24 H mg/dL (9-20) Creatinine 1.80 H mg/dL (0.7-1.3) Estim Creat Clear Calc 29 ml/min Estimated GFR 37 L (59 - ) Glucose 97 mg/dL (65-110) Calcium 9.0 mg/dL (8.4-10.2) Influenza A (RT-PCR) Negative (Negative) Influenza B (RT-PCR) Negative (Negative) RSV (RT-PCR) Negative (Negative) SARS-CoV-2 RNA (RT-PCR) Negative (Negative) Patient hx anesthesia problems: none Family hx anesthesia problems: none Results Review: All pre-operative results and documents have been reviewed as part of the pre-operative evaluation. [facility] Past Medical History Medical History Allergic rhinitis Essential hypertension History of kidney stones Hyperlipidemia Surgical History Surgical History History of left knee replacement (~2018) Family History Family History Father Coronary artery disease Myocardial infarction Sibling Coronary artery disease Mother COPD (chronic obstructive pulmonary disease) Social History Social History Social History: He lives in [place] with his of 25 years. He does not have any biological children but has 1 stepdaughter. He is a lifelong nonsmoker and does not have any history of significant alcohol use. 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 Code status: Full code Surrogate decision maker: Smoking status: Never smoker Alcohol intake: current Drinks per week: 1 Substance use: never Substance use type: does not use Do You Feel Safe in your Home?: Yes Lack of Transportation: No Lack of Food: Never True Current Housing: I Have Housing Concerned About Future Housing: No Difficulty Paying Gas/Electric Bills: No Difficulty Paying for Meds: No Currently Unemployed: No Education: High School Diploma/GED Difficulty w/ Childcare or Family Care: No Spiritual care concerns: No Anes - Eval Final PreProcedure Day of Procedure 10/26/23 11:01 Patient weight: overweight Heart: regular rate and rhythm Lungs: clear to auscultation Airway: Mallampati scale class II Neurological: alert and oriented Last oral intake: >/= 8 hours ASA classification: II Emergent:
[2023-10-26] MEDS: ceFAZolin 2 GM/D5W 50 ML 2 GM/50 ML BAG IVPB (11:13)
[2023-10-26] MEDS: LIDOCAINE HCL 2% GEL UROJET 10 ML PKG MUCOUS MEM (11:34)
--- NOTE | 2023-10-26 11:49 | P.OP_ITS ---
Procedure Note - Detailed Date of Procedure 10/26/23 Pre-op Diagnosis Ureteral stone Post-op Diagnosis Same Procedure Performed Cystoscopy, left retrograde pyelogram, left ureteroscopy, left stent placement Surgeon Enrique Woods MD Anesthesia General Indications This is a gentleman with a 4 mm left proximal ureteral stone. He is admitted the hospital for pain control and evaluation. He wanted intervention for his stone. He presented for ureteroscopy. He understood the risks of bleeding, infection, inability to remove the stone, damage to the urinary tract. He agreed to proceed Findings Stone migrated distally. Distal ureter very narrow. Unable to pass rigid or flexible ureteral scope. Stent placed Description of Procedure He has correctly identified. Informed consent obtained. From the operating room. He was given general anesthesia. He was placed in dorsal lithotomy position. He was prepped and draped sterile fashion. Time-out performed. I performed cystoscopy. He had mild trabeculations. We hypertrophied lateral prostatic lobes. There was no foreign bodies or tumors in his bladder. I did a gentle retrograde pyelogram on the left. I can see a very narrow left distal ureter. Proximal to this narrowed left distal ureter there was hydronephrosis. A filling defect was seen consistent with ureteral stone. I placed a Sensor wire into the left renal pelvis. I dilated the ureter the 8 dilator. I attempted to dilate the ureter with the 10 dilator. I was only able to get the 10 dilator past the very distal ureter. I attempted to perform rigid ureteroscopy. I he get into the very distal left ureter. No stone was seen in the distal most left ureter. It was likely the stone was more proximal to this. I then re-attempted ureteral dilation with the 810 dilator once again. Again it was very difficult to dilate with a 10 dilator due to the narrowness of the ureter. I attempted to reef performed rigid ureteroscopy. I again was unable to traverse the distal left ureter. I decided to try with a flexible ureteroscope. I placed a 2nd Sensor wire into the kidney. I backloaded the flexible ureteral scope over the wire. I again was unable to traverse the distal left ureter due to its narrowness. At this point I opted to simply place a ureteral stent and come back at another setting to extract the stone I removed the 2nd wire. I reintroduced the cystoscope. I placed a 4.8 variable length stent. Proximal coil was in the upper pole kidney. Distal coil within the bladder. The bladder was drained. He was awakened transferred to PACU in stable condition Implants 4.8 [place] left ureteral stent Estimated Blood Loss 2 Urine Output 50 Drains Yes (Ureteral stent) Pathology None sent Condition Stable Disposition PACU
--- NOTE | 2023-10-26 12:16 | SUR.PHASEI ---
Simple mask removed 1215.
--- NOTE | 2023-11-20 12:48 | PM.DS ---
DS: Admitting Diagnosis Discharge Date 10/26/23 Admitting Diagnosis Ureteral calculus DS: Summary Hospital Course Hospital Course: Patient admitted with an obstructing ureteral calculus. Partner, Dr. Yo, attempt to extract but caliber was ureter would not accommodate placement of a ureteral scope. couple weeks later he underwent successful ureteroscopy with stone extraction. Time Spent with Patient Time attestation: Total time spent providing and/or coordinating discharge services: Discharge Plan Discharge Attending physician on discharge: Enrique Woods Consulting providers: Gary Horta; Og Poole; Yong Daniel V. Discharging Clinician: Kassi Muñiz Patient Disposition: Home, Self-Care Activity: as tolerated Diet: regular Discharge Instructions: You will be contacted by the office to schedule surgery for stone treatment. Call the office if you have any concerns including bladder spasms, stent discomfort, burnign with urination, or passing clots of blood in your urine. Patient Instructions: Antibiotic Form, Kidney Stones (DC) Stand Alone Forms: General Discharge Information Follow-up/Referrals: rEvin Bowden MD [Physician] - 2 Weeks Discharge Medications: Continued losartan 50 mg tablet 50 mg PO DAILY Patient Comments: QAM simvastatin 40 mg tablet 40 mg PO EVERY OTHER DAY aspirin 81 mg Tablet,Delayed Release (Dr/Ec) 81 mg PO QAM Qty: 30 0RF No Action cetirizine 10 mg Capsule 10 mg PO DAILY hydrocodone-acetaminophen 5-325 mg tablet 1 - 2 tablet PO Q6H PRN (Reason: pain) Qty: 20 0RF cephalexin 500 mg capsule 500 mg PO Q8H Qty: 9 0RF Date of admission: 10/25/23 12:23 Primary Care Provider: Mady,Eric Smyth Admitting Provider: Ervin Bowden Attending physician on admission: Enrique Woods Condition: Stable
== END 2023-10-26 16:00 | disposition home or self-care (01) ==
LOC: ANHED 12:28 → ANH3MEDSUR 10-26 07:23
PROVIDERS: Emergency Medicine; Admitting Provider Urology; Emergency Provider Student in an Organized Health Care Education/Training Program; PCP Internal Medicine; Visit Provider Urology
PROC: (CPT 52352; principal; 2023-10-26 16:00)
DX: N13.2 Hydronephrosis with renal and ureteral calculous obstruction (principal); N17.9 Acute kidney failure, unspecified; D72.829 Elevated white blood cell count, unspecified; I10 Essential (primary) hypertension; E78.5 Hyperlipidemia, unspecified; Z79.82 Long term (current) use of aspirin; Z20.822 Contact with and (suspected) exposure to COVID-19
CPT/HCPCS: 52332; 36415; 74176; 74420; 80048; 80053; 81001; 85025; 87086; 87637; 96361; 96365; 96375; 96376; 99285; A9270; C1769; C2617; G0378; J0690; J0696; J1885; J2270; J2405; J2704; J7030; J7120; Q9966

== ENCOUNTER 2023-11-06 11:18 | Outpatient (CLI) | payer MEDICARE, OTHER, SELFPAY ==
--- NOTE | 2023-11-06 11:38 | ECG_ITS ---
Test Date: 2023-11-06 11:50:54 Measurements Intervals Roland Rate: 62 P: 22 NE: 193 QRS: 26 QRSD: 75 T: -7 QT: 396 QTc: 403 Interpretive Statements SINUS RHYTHM MISSING LEAD V2 MINIMAL Q WAVES- INFERIOR LEADS BASELINE ARTIFACT- I, II, III, AVR, AVL, AVF, V1, V3 BORDERLINE ECG No previous ECG available for comparison Electronically Signed On 11-06-2023 18:58:30 CDT by Vincenzo Baxter D.O.
[2023-11-06 12:15] LABS: INR 1.1; Prothrombin Time 14.2 Seconds (11.1-14.7)
[2023-11-06 12:16] LABS: Partial Thromboplastin Time 35.8 Seconds (22.3-36.8)
== END 2023-11-06 11:19 | disposition home or self-care (01) ==
LOC: ANHSURGERY 11:23
PROVIDERS: Anesthesiology; PCP Internal Medicine; Visit Provider Urology
DX: Z01.812 Encounter for preprocedural laboratory examination (principal); I10 Essential (primary) hypertension; N28.9 Disorder of kidney and ureter, unspecified
CPT/HCPCS: 36415; 85610; 85730; 93005

== ENCOUNTER 2023-11-12 01:00 | Day surgery (SDC) | payer MEDICARE, OTHER, SELFPAY ==
[2023-11-05 14:04] VITALS: BMI 26.2
--- NOTE | 2023-11-05 14:26 | PC.NURSE ---
Report to the Outpatient Waiting Room, entrance under the green pavilion located off [facility], at time ___9:00AM____ on date ___11/12/23____. Planned Procedure Time: ___11:00AM .? Time changes happen often and if your time is changed the preop area will call you the afternoon before. - You and your visitor will be asked to self-screen and do not enter if you have any COVID symptoms. Please call surgeon if you need to reschedule. - A mask is optional within the hospital at this time. Patients may have clear liquids (water, carbonated beverages, clear teas, apple juice) until 3 hours prior to surgery with a maximum of 20 ounces. - No food from midnight until time of surgery and no smoking. Take only the following medications with a SIP of water on the morning of surgery: ____NONE DO NOT STOP ANY OF YOUR OTHER PRESCRIPTION MEDICATIONS PRIOR TO SURGERY EXCEPT THE FOLLOWING Medications to discontinue per physician ____HOLD ASPIRIN 7 DAYS PRE-OP PER DR UNDERWOOD Date to take last dose 11/04/23 Please no make-up, nail lao, hairspray, perfume, deodorant, or body powder the day of surgery.? No jewelry (including any body piercings) or valuables the day of surgery, leave them at home.? Please take a shower or bath the night before, or the morning of, surgery with an antibacterial soap.? Wear comfortable, loose fitting clothing.? - Jewelry must be removed prior to entering the operating room.? Rings and piercings that are not removed may be cut off. - The hospital will not accept responsibility for valuables.? - Please leave all valuables, including medications, at home the day of surgery. If you are going home after surgery, a licensed driver merchandiser must drive you home.? - NO public transportation without another adult if you receive anesthesia. - We recommend that an adult stay with you for 24 hours following discharge. - We also recommend that you do not drive, make important decision, drink alcoholic beverages, or take any drugs that were not prescribed by your health care provider for at least 24 hours after your discharge time. Follow any additional instructions given to you from your surgeon. Telephone instructions given to PATIENT and asked if any additional questions and then verbalized understanding. Patient advised to call surgeon office or pre surgery nurse liaison [phone] if any additional questions.
[2023-11-12] VITALS (8 sets, daily range): BP systolic 138–160; BP diastolic 60–83; PULSE 57–64; RESP 12–20; TEMP 36.3–36.4; O2SAT 99–100; BMI 25.1
--- NOTE | ~2023-11-12 | XR_ITS ---
EXAMINATION: XR fluoroscopy no charge DATE: 11/12/2023 10:10 CDT INDICATION: LEFT STENT REMOVAL, STONE EXTRACTION . TECHNIQUE: 3 fluoroscopic images of the left abdomen and pelvis were obtained during left stent remov al and stone extraction, performed by Ervin Bowden MD. I was not present during the procedure. Fluoroscopy exposure time was 36.6 seconds. Air Kerma 12 mGy. DAP [id number] mGym2. COMPARISON: 10/26/2023 FINDINGS/IMPRESSION: Fluoroscopic documentation of left stent removal and stone extraction. Please refer to the operative note for complete procedural details . Reviewed, dictated and finalized at location K.
--- NOTE | 2023-11-12 06:23 | WPDHPUPDATE1 ---
History and Physical Update Update Date/Time: 11/12/23 06:23 History and Physical has been reviewed, including an updated exam of the patient. There are NO changes in the patient's condition. Risks, benefits, and alternatives have been discussed and questions answered. Patient agrees to proceed with procedure.
--- NOTE | 2023-11-12 07:04 | PM.HPGS ---
History of Present Illness History of Present Illness Consent: Risks, benefits, and alternatives have been discussed and questions answered. Patient agrees to proceed with procedure. Chief complaint: Left Ureteral Stone Narrative: Yusuf Toth is a 78 year old male with a history of recurrent urolithiasis who recently presented with a 4 mm left proximal ureteral stone. My partner was unable to traverse the ureter with a ureteral scope so he simply placed a stent. Patient now presents for definitive stone intervention. Review of Systems Review of Systems: All systems reviewed & are unremarkable except as noted in HPI and below PMFSH Past Medical History Medical History Allergic rhinitis Essential hypertension History of kidney stones Hyperlipidemia Surgical History Surgical History History of left knee replacement (~2018) Family History Family History Father Coronary artery disease Myocardial infarction Sibling Coronary artery disease Mother COPD (chronic obstructive pulmonary disease) Social History Social History Social History: He lives in [place] with his of 25 years. He does not have any biological children but has 1 stepdaughter. He is a lifelong nonsmoker and does not have any history of significant alcohol use. 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 Code status: Full code Surrogate decision maker: Smoking status: Never smoker Alcohol intake: current Drinks per week: 1 Substance use: never Substance use type: does not use Do You Feel Safe in your Home?: Yes Lack of Transportation: No Lack of Food: Never True Current Housing: I Have Housing Concerned About Future Housing: No Difficulty Paying Gas/Electric Bills: No Difficulty Paying for Meds: No Currently Unemployed: No Education: High School Diploma/GED Difficulty w/ Childcare or Family Care: No Living arrangements: with family Additional living arrangements comments: Spiritual care concerns: No Meds Home Medications and Allergies Home Medications Medication Instructions Recorded Confirmed Type losartan 50 mg tablet 50 mg PO DAILY 05/18/22 11/05/23 History simvastatin 40 mg tablet 40 mg PO EVERY OTHER DAY 05/18/22 11/05/23 History aspirin 81 mg tablet,delayed 81 mg PO QAM #30 tabs 05/19/22 11/05/23 Rx release cetirizine 10 mg capsule 10 mg PO DAILY 11/05/23 11/05/23 History Allergies Allergy/AdvReac Type Severity Reaction Status Date / Time No Known Drug Allergies Allergy Unknown Verified 11/05/23 14:02 Exam Const: General: no acute distress Resp: Effort & Inspection: normal respiratory effort GI: Inspection: non-distended GI Palp: No abdominal tenderness and No Guarding due to palpation present (GI) Auscultation: normal bowel sounds Assessment and Plan Assessment and plan (1) Calculus of left ureter: Code(s): N20.1 - Calculus of ureter Status: Acute Assessment and Plan: Cystoscopy, left ureteroscopy with stone extraction, possible laser lithotripsy, retrograde pyelogram and stent placement
[2023-11-12] MEDS: LACTATED RINGERS 1,000 ML 30 ML IV CONT (08:20)
--- NOTE | 2023-11-12 08:33 | WPDANESEPPF ---
Anes - Initial Pre Proc Eval Procedure: Operation Date: 11/12/23 11:00 Proposed Procedures p Cystoscopy, Left Ureteroscopy, Left Stone Extraction, Possible Holmium Laser, Possible Left Retrograde Pyelogram, Possible Left Stent Removal / Replacement - Ervin Bowden MD Date/Time: 11/12/23 08:33 Surgeon: Ervin Bowden MD Pre Op Diagnosis: Left Ureteral Stone Patient Data Age: 78 Gender: M Height: 1.7 m Weight: 72.8 kg Last Vital Signs Temp 97.6 F 11/12/23 08:00 Pulse 64 11/12/23 08:00 Resp 16 11/12/23 08:00 BP 150/70 H 11/12/23 08:00 Pulse Ox 100 11/12/23 08:00 O2 Del Method Room Air 11/12/23 08:00 Allergies Allergy/AdvReac Type Severity Reaction Status Date / Time No Known Drug Allergies Allergy Unknown Verified 11/12/23 08:12 Home Medications Medication Instructions Recorded Confirmed Type losartan 50 mg tablet 50 mg PO DAILY 05/18/22 11/05/23 History simvastatin 40 mg tablet 40 mg PO EVERY OTHER DAY 05/18/22 11/05/23 History aspirin 81 mg tablet,delayed 81 mg PO QAM #30 tabs 05/19/22 11/12/23 Rx release cetirizine 10 mg capsule 10 mg PO DAILY 11/05/23 11/05/23 History Patient hx anesthesia problems: none Family hx anesthesia problems: none Results Review: All pre-operative results and documents have been reviewed as part of the pre-operative evaluation. [facility] Past Medical History Medical History Allergic rhinitis Essential hypertension History of kidney stones Hyperlipidemia Surgical History Surgical History History of left knee replacement (~2018) Family History Family History Father Coronary artery disease Myocardial infarction Sibling Coronary artery disease Mother COPD (chronic obstructive pulmonary disease) Social History Social History Social History: He lives in [place] with his of 25 years. He does not have any biological children but has 1 stepdaughter. He is a lifelong nonsmoker and does not have any history of significant alcohol use. 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 He then worked [employer] for several more years until he retired at age 75. Code status: Full code Surrogate decision maker: Smoking status: Never smoker Alcohol intake: current Drinks per week: 1 Substance use: never Substance use type: does not use Do You Feel Safe in your Home?: Yes Lack of Transportation: No Lack of Food: Never True Current Housing: I Have Housing Concerned About Future Housing: No Difficulty Paying Gas/Electric Bills: No Difficulty Paying for Meds: No Currently Unemployed: No Education: High School Diploma/GED Difficulty w/ Childcare or Family Care: No Living arrangements: with family Additional living arrangements comments: Spiritual care concerns: No Anes - Eval Final PreProcedure Day of Procedure 11/12/23 08:33 Patient weight: normal Heart: regular rate and rhythm Lungs: clear to auscultation Airway: Mallampati scale class II Neurological: alert and oriented Last oral intake: >/= 8 hours ASA classification: II Emergent: no Anesthetic plan: proceed Anesthesia type and monitoring: general LMA and standard monitoring Results Review: All pre-operative results and documents have been reviewed as part of the pre-operative evaluation. HTN, hyperlipidemia, active w walking 1-2 fos, no cp or sob. Informed Consent: The patient's anesthetic plan and its attendant risks and benefits were discussed with the patient/family/POA. Questions were solicited and answers provided to the satisfaction of the patient/family/POA.
[2023-11-12] MEDS: ceFAZolin 2 GM/D5W 50 ML 2 GM/50 ML BAG IVPB (10:01)
[2023-11-12] MEDS: LIDOCAINE HCL 2% GEL UROJET 10 ML PKG MUCOUS MEM (10:27)
--- NOTE | 2023-11-12 10:38 | W.PM.PROC2 ---
Procedure Note - Detailed Date of Procedure 11/12/23 Pre-op Diagnosis Left Ureteral Stone Post-op Diagnosis Same Procedure Performed cystoscopy, left ureteroscopy with stone extraction, left ureteral stent removed Surgeon Ervin Bowden MD Anesthesia General Description of Procedure Patient is brought the op suite where he was prepped and draped in routine sterile fashion while in dorsal lithotomy position after the uneventful induction of a general LMA anesthetic. Cystoscopy was undertaken with a 19 F rigid cystoscope. Urethra was without stricture. He has moderate lateral lobe hyperplasia without a median lobe to his prostate. Bladder mucosa is normal. There was no intravesical foreign body or neoplasm (other than the indwelling ureteral stent). Tip of the stent is grasped and the stent was removed with ease. Bladder complete removal a 0.035 in glidewire was advanced through the stent into the left renal pelvis. Distal ureter was dilated with an 8 F 10 F dilator. Ureteroscopy with a short tapered semi-rigid ureteral scope was capable of identifying his left mid ureteral, 4-5 mm stone. The stone was extracted with a 1.9 F disposable stone basket with ease. Because of the ease of this manipulation I opted not to replace his ureteral stent. Scopes and wires removed he was taken to the recovery room in good condition
== END 2023-11-12 11:53 | disposition home or self-care (01) ==
PROVIDERS: PCP Internal Medicine; Visit Provider Urology
PROC: (CPT 52352; principal; 2023-11-12 11:00)
DX: N20.1 Calculus of ureter (principal); N40.0 Benign prostatic hyperplasia without lower urinary tract symptoms; I10 Essential (primary) hypertension; E78.5 Hyperlipidemia, unspecified; Z79.82 Long term (current) use of aspirin; Z98.890 Other specified postprocedural states; Z82.49 Family history of ischemic heart disease and other diseases of the circulatory system
CPT/HCPCS: 52352; 82365; 88300; 99199; C1769; J0690; J2405; J2704; J3010; J7120